=== PATIENT | male | born 2000 | race African-American/Black ===

== ENCOUNTER 2021-01-21 20:17 | Emergency (ER) | payer SELFPAY ==
--- NOTE | ~2021-01-21 | CT_ITS ---
EXAMINATION: CT facial & cervical spine wo DATE: 01/21/2021 21:21 INDICATION: Head injury TECHNIQUE: Computed tomography (CT) of the maxillofacial region and cervical spine was performed with out intravenous contrast. The dose-length product (DLP) was 605.33 mGy-cm. Automated exposure control and iterative reconstruction technique were employed. COMPARISON: None FINDINGS: MAXILLOFACIAL CT: There is a comminuted fracture in the anterior body of the right mandible which extends to the midlin e. The fracture passes near the roots of the right canine, premolars, and first molar. The right cent ral and lateral incisors appear to be absent. The fracture also appears to extend to the base of the left central incisor. No additional facial fracture is identified. Soft tissue swelling is seen in th e mandible near the fractures. CERVICAL SPINE CT: There is no fracture, dislocation, or subluxation. The vertebral body heights, alignment, and interve rtebral disc spaces are normal. The paravertebral soft tissues are unremarkable. The odontoid is inta ct. Mild irregularity superior endplate of the C7 vertebral body to the right of midline is a chronic appearance. IMPRESSION: 1. Comminuted fracture in the anterior body of the right mandible extending to the midline anteriorly and passing near the roots of several teeth. 2. No cervical spine fracture. Reviewed, dictated and finalized at location A. 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
--- NOTE | ~2021-01-21 | CT_ITS ---
EXAMINATION: CT brain wo con INDICATION: Head injury COMPARISON: None TECHNIQUE: Standard unenhanced head CT. The dose-length product (DLP) was 605.33 mGy-cm. The mA was a djusted according to patient size. Iterative reconstruction technique was employed. FINDINGS: There is no intracranial hemorrhage, acute infarction, or abnormal mass lesion. The ventric les are normal. There is no abnormal mass effect or midline shift. The kaye-white matter differentiat ion is normal. The basal cisterns are patent. The orbits are normal. The paranasal sinuses, mastoids and calvarium are normal. IMPRESSION: 1. No acute intracranial abnormality. Reviewed, dictated and finalized at location A. 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
[2021-01-21 20:27] VITALS: BP 152/76; PULSE 86; RESP 18; TEMP 36.9; O2SAT 100
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
[2021-01-21] MEDS: MORPHINE SULFATE (*CRX) 2 MG/ML INJ IV PUSH (20:47)
[2021-01-21] MEDS: ONDANSETRON INJ 4 MG/2 ML VIAL (20:54)
[2021-01-21 22:49] VITALS: BP 142/75; PULSE 88; RESP 16; O2SAT 99
== END 2021-01-21 22:50 | disposition home or self-care (01) ==
PROVIDERS: Emergency Provider Emergency Medicine
DX: S02.601A Fracture of unspecified part of body of right mandible, initial encounter for closed fracture (principal); V47.6XXA Car passenger injured in collision with fixed or stationary object in traffic accident, initial encounter
CPT/HCPCS: 70450; 70486; 72125; 96374; 96375; 99284; J1100; J2270; J2405